=== PATIENT | male | born 1980 | race Two or more races ===

== ENCOUNTER 2016-11-20 14:28 | Emergency (ER) | payer SELFPAY ==
[~2016-11-20] VITALS: Ht 172.7 cm; Wt 74.8 kg
--- NOTE | 2016-11-20 14:35 | NUR ---
BB RA60/CHP: WILLEM PIERCE TO BACK x2. OK TO BOOK. PATIENT BREATHING EVEN AND UNLABORED. NO SOB. VITALS STABLE. SAFETY AND COMFORT MEASURES IN PLACE. AWAITING MD ORDERS.
[2016-11-20] MEDS ORDERED: TDAP [DIPH/PERTUSSIS/TET] 0.5 ML VIAL IM ONE ×2 (14:42→15:00)
--- NOTE | 2016-11-20 14:47 | NUR ---
WOUND CARE PERFORMED.
--- NOTE | 2016-11-20 15:18 | NUR ---
Patient discharged in custody in stable condition. Written and verbal after care instructions given. Patient verbalizes understanding of instruction.
[2016-11-20 15:21] VITALS: BP 124/86
== END 2016-11-20 15:22 ==
LOC: ER 14:30
DX: S09.91XA Unspecified injury of ear, initial encounter (principal); H69.81 Other specified disorders of Eustachian tube, right ear; Z23 Encounter for immunization; W34.00XA Accidental discharge from unspecified firearms or gun, initial encounter; Y93.89 Activity, other specified; Y92.89 Other specified places as the place of occurrence of the external cause; Y99.9 Unspecified external cause status
CPT/HCPCS: 90715; A4606; A6402; A6403; Z7610